=== PATIENT | female | born 1950 | race Caucasian/White ===

== ENCOUNTER 2022-03-23 12:17 | Emergency (ER) | payer MEDICARE, SELFPAY ==
--- NOTE | 2022-03-23 12:29 | ED.ABDPAIN ---
HPI - Abdominal Pain General Chief Complaint: Abdominal Pain Stated Complaint: Stomach pain Time Seen by Provider: 03/23/22 12:29 Source: patient and RN notes reviewed Mode of arrival: ambulatory Limitations: no limitations History of Present Illness HPI narrative: 72 y/o female presented for c/o lower abdominal pain, this is the third day. Endorses associated decreased appetite and diarrhea today. States pain is constant, waxes/wanes in intensity depending on taking ibuprofen. Described as sharp, rates 9/10. Pain does not radiate. Denies associated hematochezia, melena, nausea, vomiting, constipation,hematuria, dysuria, frequency, fever or chills. Denies hx abdominal surgeries. Requesting different pain medication. Related Data Home Medications Medication Instructions Recorded Confirmed metoprolol succinate 50 mg PO DAILY 03/23/22 03/23/22 Allergies Allergy/AdvReac Type Severity Reaction Status Date / Time Sulfa (Sulfonamide Allergy Unknown Unknown Unverified 03/23/22 12:34 Antibiotics) Review of Systems Review of Systems: CONSTITUTIONAL: Denies body aches, fever, chills EYES: Denies visual changes ENT: Denies rhinorrhea, congestion CARDIOVASCULAR: Denies chest pain, palpitations, or edema. RESPIRATORY: Denies cough or dyspnea. GASTROINTESTINAL: Endorses abdominal pain, diarrhea. Denies , nausea, vomiting, hematochezia, melena, hematemesis GENITOURINARY: Denies dysuria, hematuria, or CVA tenderness. SKIN: Denies rash, itching, or wounds. MUSCULOSKELETAL: Denies back pain, joint pain, or myalgia. NEUROLOGIC: Denies headache, numbness, tingling, or weakness. PSYCH: Denies mood change All systems reviewed & are unremarkable except as noted in HPI and below PMFSH Comments At time of signature, I have reviewed and agree with nursing past medical, surgical, social and family history unless otherwise noted. Please see nursing chart for further information. There is no relevant family history pertinent to the presenting complaint Exam Narrative: GENERAL: Well-appearing HEAD: Normocephalic, atraumatic. EYES: EOMI. Conjunctivae normal. ENT: Mucous membranes pink and moist. NECK: Normal AROM. Supple. No lymphadenopathy. CHEST: No respiratory distress. Clear to auscultation. HEART: Regular rate and rhythm. No murmur appreciated. Normal peripheral pulses. ABDOMEN: Tender across low abdomen, No guarding, rebound tenderness, asymmetry; abd soft, nondistended, normal active bowel sounds. Ventral hernia with exertion. Moves slowly due to pain increasing with movement. MUSCULOSKELETAL: No bony tenderness. EXTREMITIES: Normal range of motion. No edema. SKIN: Warm, dry, no rash. Capillary refill normal. Normal skin turgor. NEURO: No focal deficits. Alert and oriented x3. Gait steady. PSYCH: Normal affect. Course Course Emergency Course: Patient is aware of diagnosis, understands and agrees to treatment plan. Anticipatory guidance given. Patient agrees to follow-up as directed and is aware of reasons to seek care at the emergency department. Portions of this record may have been created with voice recognition software Level of Care: Express Care Visit Vital Signs Vital signs: Vital Signs Temperature 98.8 F 03/23/22 12:32 Pulse Rate 70 03/23/22 12:32 Respiratory Rate 16 03/23/22 12:32 Blood Pressure 122/47 L 03/23/22 12:32 Pulse Oximetry 97 03/23/22 12:32 Temperature 98.8 F 03/23/22 12:35 Pulse Rate 70 03/23/22 12:35 Respiratory Rate 16 03/23/22 12:35 Blood Pressure 122/47 L 03/23/22 12:35 Pulse Oximetry 97 03/23/22 12:35 Transfer Transfered to: [facility] Transportation: Other (Private vehicle) Transfer rationale: Pt is agreeable to transfer to ER for further evaluation of abdominal pain. Requests transfer to [facility] via private vehicle. Risks of transportation reviewed with pt including injury, worsening of condition and . v/u. Requested laborer driver self. Repor
[2022-03-23 12:32] VITALS: BP 122/47; PULSE 70; RESP 16; TEMP 37.1; O2SAT 97
[2022-03-23 12:35] VITALS: BP 122/47; PULSE 70; RESP 16; TEMP 37.1; O2SAT 97
== END 2022-03-23 13:26 | disposition short-term general hospital (02) ==
PROVIDERS: Emergency Provider Nurse Practitioner Family; PCP Family Medicine
DX: R10.30 Lower abdominal pain, unspecified (principal); I10 Essential (primary) hypertension
CPT/HCPCS: 81003; 99212; G0463

== ENCOUNTER 2022-03-23 13:51 | Day surgery (SDC) | payer MEDICARE, SELFPAY ==
[2022-03-23] VITALS (18 sets, daily range): BP systolic 89–148; BP diastolic 40–52; PULSE 69–88; RESP 11–26; TEMP 36.2–37.9; O2SAT 96–100
--- NOTE | ~2022-03-23 | CT_ITS ---
EXAMINATION: CT abdomen pelvis w con DATE: 03/23/2022 15:53 INDICATION: Right lower quadrant abdominal pain. Diarrhea. TECHNIQUE: Computed tomography (CT) of the abdomen and pelvis was performed with 100 mL Omnipaque 350 intravenous contrast. Automated exposure control and iterative reconstruction technique were employe d. The dose-length product was 703.15 mGy-cm. COMPARISON: None. FINDINGS: The visualized portions of the lung bases demonstrates smooth septal thickening, consistent with mild pulmonary edema. There is mild atelectasis bilaterally. No pleural effusion. There is biat rial enlargement of the heart. There are coronary artery calcifications. No pericardial effusion. The liver demonstrates a nodular surface contour, consistent with cirrhosis. There are cysts in the live r measuring up to 7 mm. Paraesophageal varices are noted. The gallbladder, spleen, pancreas, and adre nal glands are normal. There are cysts in the kidneys measuring up to 9 mm on the right. There is an old subcapsular hematoma of left kidney with calcifications. There is a portocaval shunt from the spl enic vein to the inferior vena cava. There are no dilated loops of bowel. The appendix is dilated to 10 mm with surrounding fat stranding, consistent with appendicitis. There are fibroids in the uterus measuring up to 12 mm. There are no pathologically enlarged lymph nodes. There is no free intraperito jared fluid. There is mild lumbar spondylosis. IMPRESSION: 1. Acute appendicitis. I called this result to Dr. Dean. 2. Cirrhosis of the liver with portal venous hypertension. 3. Mild pulmonary edema. Reviewed, dictated and finalized at location B.
--- NOTE | 2022-03-23 14:41 | PC.NURSE ---
Lenka Dean at bedside to assess pt.
[2022-03-23 15:08] LABS: Hematocrit 41.3 % (37.0-47.0); Hemoglobin 14.3 g/dL (12.0-15.0); Mean Corpuscular HGB Conc 34.6 g/dl (32-36); Mean Corpuscular Hemoglobin 33.3 pg (26-34); Mean Corpuscular Volume 96.3 fl (80-100); Mean Platelet Volume 10.4 fl (7.4-10.4); Platelet Count Result 93 k/mm3 (150-375); Red Blood Count 4.29 M/mm3 (4.2-5.4); Red Cell Distribution Width 13.7 % (11.5-14.5); White Blood Count 7.7 K/mm3 (4.5-10.0)
[2022-03-23 15:16] LABS: Alanine Aminotransferase 30 U/L (4-35); Albumin Level 3.2 g/dL (3.5-5.1); Alkaline Phosphatase 138 U/L (38-126); Anion Gap 5 mmol/L (8-16); Aspartate Amino Transferase 70 U/L (14-36); Bilirubin,Total 2.6 mg/dL (0.2-1.3); Blood Urea Nitrogen 19 mg/dL (7-17); Calcium 8.3 mg/dL (8.4-10.2); Carbon Dioxide 23 mmol/L (22-30); Chloride 105 mmol/L (98-107); Estimated CRCL calculation 51 ml/min; Estimated Glomerular Filt Rate > 60; Glucose 151 mg/dL (65-110); Potassium 3.9 mmol/L (3.4-5.0); Sodium 133 mmol/L (137-145)
--- NOTE | 2022-03-23 15:44 | PC.NURSE ---
Patient off unit to Radiology for CT.
[2022-03-23 15:45] LABS: Band Neutrophils Percent 7 % (0-6); Eosinophils Absolute Manual 0.07 K/mm3 (0.02-0.5); Eosinophils Percent Manual 1 % (0-4); Lymphocytes Absolute Manual 0.15 K/mm3 (1.1-4.5); Metamyelocytes Percent 2 %; Monocytes Absolute Manual 0.46 K/mm3 (0.1-0.90); Monocytes Percent Manual 6 % (3-9); Neutrophils Absolute Manual 6.85 K/mm3 (1.7-7.2); Neutrophils Percent Manual 82 % (46-73); Total Cells Counted 100
[2022-03-23 15:48] LABS: Add Urine Microscopic? NO; Appearance Urine Clear (Clear); Bilirubin Urine Negative (Negative); Blood Urine Negative (Negative); Color Urine Yellow (Yellow); Glucose Urine UA Negative (Negative); Ketones Urine Negative (Negative); Leukocyte Esterase Ur Negative LEU/UL (Negative); Nitrate Urine Negative (Negative); Protein Urine Negative (Negative); Specific Grav Ur 1.005 (1.001-1.035); Urobilinogen Urine Negative mg/dL (<2.0)
--- NOTE | 2022-03-23 16:16 | ED.ABDPAIN ---
HPI - Abdominal Pain General Chief Complaint: Abdominal Pain Stated Complaint: abd pain Time Seen by Provider: 03/23/22 14:06 History of Present Illness HPI narrative: Patient is a 72-year-old female who presents ER with lower abdominal pain. Progressing over the last 2 days. Worse with movement. Has had a few liquid stools but no overt diarrhea. No nausea or vomiting. Reports subjective fever. Pain seems to be worse in the right lower quadrant. No radiation. Related Data Home Medications Medication Instructions Recorded Confirmed metoprolol succinate 50 mg PO DAILY 03/23/22 03/23/22 Allergies Allergy/AdvReac Type Severity Reaction Status Date / Time Sulfa (Sulfonamide Allergy Unknown Unknown Verified 03/23/22 16:25 Antibiotics) Review of Systems Review of Systems: All systems reviewed & are unremarkable except as noted in HPI and below Constitutional: Constitutional: Denies chills, Reports fever(s) and Denies weakness ENT: Denies nasal congestion and Denies sore throat Cardiovascular: Cardiovascular: Denies chest pain, Denies rapid heart rate and Denies radiating jaw, neck or arm pain Respiratory: Respiratory: Denies cough, Denies dyspnea and Denies wheezing Gastrointestinal: Gastrointestinal: Reports abdominal pain, Reports diarrhea, Denies nausea and Denies vomiting Genitourinary: Genitourinary: Denies nocturia, Denies dysuria and Denies flank pain PMFSH Past Medical History Medical History (Updated 03/23/22 @ 17:10 by Ronny Dean MD) H/O: HTN (hypertension) Overweight (BMI 25.0-29.9) Surgical History Surgical History (Updated 03/23/22 @ 17:09 by Ronny Dean MD) No significant past surgical history Social History Social History (Updated 03/23/22 @ 17:09 by Ronny Dean MD) Smoking status: Never smoker Exam Narrative: GENERAL: Well-appearing, well-nourished, and in no acute distress. HEAD: Normocephalic, atraumatic. CHEST: Clear to auscultation. No respiratory distress. HEART: Regular rate and rhythm. Normal peripheral pulses. ABDOMEN: Soft, tender palpation right lower quadrant with guarding, nondistended, normal active bowel sounds. EXTREMITIES: Normal range of motion. No edema. SKIN: Warm, dry, no rash. NEURO: Alert and oriented x3. PSYCH: Normal mood and affect. Course Course Emergency Course: Patient informed of results. Discussed case with Dr. Langston. Patient received IV Zosyn. Work your requests add on coagulation studies due to cirrhosis seen on imaging. Vital Signs Vital signs: Vital Signs Temperature 100.2 F H 03/23/22 13:53 Pulse Rate 76 03/23/22 13:53 Respiratory Rate 14 03/23/22 13:53 Blood Pressure 148/52 H 03/23/22 13:53 Pulse Oximetry 98 03/23/22 13:53 Temperature 100.2 F H 03/23/22 13:53 Pulse Rate 76 03/23/22 13:53 Respiratory Rate 14 03/23/22 13:53 Blood Pressure 125/48 L 03/23/22 14:16 Pulse Oximetry 97 03/23/22 16:15 MDM - Abdominal Pain Lab Data Result diagrams: 03/23/22 14:56 03/23/22 14:56 Labs: Lab Results 03/23/22 03/23/22 03/23/22 Range/Units 14:56 14:56 15:13 WBC 7.7 (4.5-10.0) K/mm3 RBC 4.29 (4.2-5.4) M/mm3 Hgb 14.3 (12.0-15.0) g/dL Hct 41.3 (37.0-47.0) % MCV 96.3 (80-100) fl MCH 33.3 (26-34) pg MCHC 34.6 (32-36) g/dl RDW 13.7 (11.5-14.5) % Plt Count 93 L (150-375) k/mm3 MPV 10.4 (7.4-10.4) fl Immature Gran % (Auto) Not Reportable Neut % (Auto) Not Reportable Lymph % (Auto) Not Reportable Brooks % (Auto) Not Reportable Eos % (Auto) Not Reportable Baso % (Auto) Not Reportable Lymph # (Auto) Not Reportable Brooks # (Auto) Not Reportable Eos # (Auto) Not Reportable Baso # (Auto) Not Reportable Abs Immat Gran (auto) Not Reportable Absolute Neuts (auto) Not Reportable Absolute Nucleated RBC Not Reportable Total Counted 100
--- NOTE | 2022-03-23 16:19 | PC.NURSE ---
EDP at bedside to update patient on results and plan of care.
--- NOTE | 2022-03-23 16:32 | WPDANESEPP ---
Anes - Eval Pre Procedure Procedure: Laparoscopic appendectomy Date/Time: 03/23/22 16:32 Surgeon: alondra Preop Diagnosis: Acute appendicitis Pre Op Diagnosis: abd pain Patient Data Age: 72 Gender: F Height: 1.63 m Weight: 79.5 kg Last Vital Signs Temp 100.2 F H 03/23/22 13:53 Pulse 76 03/23/22 13:53 Resp 14 03/23/22 13:53 BP 125/48 L 03/23/22 14:16 Pulse Ox 97 03/23/22 16:15 Allergies Allergy/AdvReac Type Severity Reaction Status Date / Time Sulfa (Sulfonamide Allergy Unknown Unknown Verified 03/23/22 16:25 Antibiotics) Home Medications Medication Instructions Recorded Confirmed Type metoprolol succinate 50 mg PO DAILY 03/23/22 03/23/22 History Laboratory Tests 03/23/22 03/23/22 03/23/22 14:56 14:56 15:13 WBC 7.7 K/mm3 K/mm3 (4.5-10.0) RBC 4.29 M/mm3 M/mm3 (4.2-5.4) Hgb 14.3 g/dL g/dL (12.0-15.0) Hct 41.3 % % (37.0-47.0) MCV 96.3 fl fl (80-100) MCH 33.3 pg pg (26-34) MCHC 34.6 g/dl g/dl (32-36) RDW 13.7 % % (11.5-14.5) Plt Count 93 k/mm3 L k/mm3 (150-375) MPV 10.4 fl fl (7.4-10.4) Immature Gran % (Auto) Not Reportable Neut % (Auto) Not Reportable Lymph % (Auto) Not Reportable Arthur % (Auto) Not Reportable Eos % (Auto) Not Reportable Baso % (Auto) Not Reportable Lymph # (Auto) Not Reportable Arthur # (Auto) Not Reportable Eos # (Auto) Not Reportable Baso # (Auto) Not Reportable Abs Immat Gran (auto) Not Reportable Absolute Neuts (auto) Not Reportable Absolute Nucleated RBC Not Reportable Total Counted 100 Neutrophils % (Manual) 82 % H % (46-73) Band Neutrophils % 7 % H % (0-6) Lymphocytes % (Manual) 2.0 % L % (18-44) Monocytes % (Manual) 6 % % (3-9) Eosinophils % (Manual) 1 % % (0-4) Metamyelocytes % 2 % % Nucleated RBC % Not Reportable Abs Neuts (Manual) 6.85 K/mm3 K/mm3 (1.7-7.2) Abs Lymphs (Manual) 0.15 K/mm3 L K/mm3 (1.1-4.5) Abs Monocytes (Manual) 0.46 K/mm3 K/mm3 (0.1-0.90) Absolute Eos (Manual) 0.07 K/mm3 K/mm3 (0.02-0.5) Platelet Estimate Slightly decreased (Adequate) % Immature Plt Fraction 3.0 % % (0.9-11.2) Sodium 133 mmol/L L mmol/L (137-145) Potassium 3.9 mmol/L mmol/L (3.4-5.0) Chloride 105 mmol/L mmol/L (98-107) Carbon Dioxide 23 mmol/L mmol/L (22-30) Anion Gap 5 mmol/L L mmol/L (8-16) BUN 19 mg/dL H mg/dL (7-17) Creatinine 0.90 mg/dL mg/dL (0.7-1.0) Estim Creat Clear Calc 51 ml/min ml/min Estimated GFR > 60 (59 - ) Glucose 151 mg/dL H mg/dL (65-110) Calcium 8.3 mg/dL L mg/dL (8.4-10.2) Total Bilirubin 2.6 mg/dL H mg/dL (0.2-1.3) AST 70 U/L H U/L (14-36) ALT 30 U/L U/L (4-35) Alkaline Phosphatase 138 U/L H U/L (38-126) Total Protein 6.0 g/dL L g/dL (6.3-8.2) Albumin 3.2 g/dL L g/dL (3.5-5.1) Urine Color Yellow (Yellow) Urine Appearance Clear (Clear) Urine pH 6.0 (5.0-9.0) Ur Specific [place] 1.005 (1.001-1.035) Urine Protein Negative mg/dL mg/dL (Negative) Urine Glucose (UA) Negative mg/dL mg/dL (Negative) Urine Ketones Negative mg/dL mg/dL (Negative) Ur Blood (Man) Negative (Negative) Urine Nitrate Negative (Negative) Urine Bilirubin Negative (Negative) Urine Urobilinogen Negative mg/dL mg/dL (<2.0) Leukocyte Esterase Rfl Negative ANKUSH/UL ANKUSH/UL (Negative) Patient hx anesthesia problems
--- NOTE | 2022-03-23 17:28 | PM.IMHP ---
H&P: HPI History of Present Illness Date/Time: 03/23/22 17:28 Chief Complaint: Lower abdominal pain Narrative: This is a 72-year-old woman who presented to the emergency department with lower abdominal pain that started 2 days ago. She states that this was mild generalized pain at 1st but now is more localized to the right lower quadrant. She denies any nausea or vomiting. She did have some slightly looser stools this morning. She denies fevers or chills, but her temperature is slightly elevated in the emergency department. She states that she had some mild pains similar to this about a year ago but they were not as severe and resolved on their own. She denies any history of heavy alcohol use and denies a prior history of viral hepatitis. She was on statins for cholesterol several years ago and her liver enzymes were monitored at that time but she states that they were never elevated back then. Review of Systems Review of Systems: All systems reviewed & are unremarkable except as noted in HPI and below Constitutional: Constitutional: Denies chills, Denies fever(s), Denies headache(s) and Denies weight loss Eyes: Eyes: Denies change in vision ENT: Denies dizziness, Denies headache(s), Denies neck mass and Denies throat swelling Cardiovascular: Cardiovascular: Denies chest pain, Denies lightheadedness and Denies dyspnea Respiratory: Respiratory: Denies cough, Denies dyspnea and Denies wheezing Gastrointestinal: Gastrointestinal: Reports as per HPI and Reports abdominal pain Genitourinary: Genitourinary: Denies hematuria and Denies dysuria Musculoskeletal: Musculoskeletal: Reports as per HPI Integumentary/Breasts: Skin/Breast: Reports as per HPI Neurologic: Denies dizziness and Denies headache(s) Allergic/Immunologic: Allergic/Immunologic: Denies throat swelling and Denies wheezing [facility] Past Medical History Medical History (Updated 03/23/22 @ 17:36 by Aguila Delatorre DO) H/O: HTN (hypertension) Overweight (BMI 25.0-29.9) Surgical History Surgical History (Updated 03/23/22 @ 17:31 by Aguila Delatorre DO) History of lumpectomy of left breast Social History Social History (Updated 03/23/22 @ 17:32 by Aguila Delatorre DO) Smoking status: Never smoker Alcohol use details: Maybe 1 glass of wine per month Meds Home Medications and Allergies Home Medications Medication Instructions Recorded Confirmed Type metoprolol succinate 50 mg PO DAILY 03/23/22 03/23/22 History Allergies Allergy/AdvReac Type Severity Reaction Status Date / Time Sulfa (Sulfonamide Allergy Unknown Unknown Verified 03/23/22 16:25 Antibiotics) Vital Signs Vital Signs - 24 hr 03/23/22 13:53 03/23/22 14:10 03/23/22 14:11 Temperature 37.9 C H Pulse Rate 76 Respiratory Rate 14 Blood Pressure 148/52 H 133/48 L Pulse Oximetry 98 97 97 03/23/22 14:15 03/23/22 14:16 03/23/22 15:16 Temperature Pulse Rate Respiratory Rate Blood Pressure 125/48 L Pulse Oximetry 96 96 97 03/23/22 15:30 03/23/22 15:58 03/23/22 16:02 Temperature Pulse Rate Respiratory Rate Blood Pressure Pulse Oximetry 97 96 97 03/23/22 16:15 03/23/22 16:30 03/23/22 16:45 Temperature Pulse Rate Respiratory Rate Blood Pressure Pulse Oximetry 97 96 97 Exam Const: General: no acute distress and alert Orientation/consciousness: patient oriented x3 HENMT: Head: normocephalic and atraumatic Ears: hearing grossly normal bilaterally General nose exam: Normal nares present Mouth: Yes Normal oral and palatal mucosa present Eyes: Periorbital: periorbital findings normal Sclera: sclerae normal EOM: EOMs intact bilaterally Neck: Neck: normal visual inspection, no lymphadenopathy and trachea midline Chest: Chest palpation & inspection: normal inspection of the chest Resp: Effort & Inspection: normal respiratory effort Auscultation: clear to auscultation bilaterally Card
--- NOTE | 2022-03-23 17:40 | WPDHPUPDATE1 ---
History and Physical Update Update Date/Time: 03/23/22 17:40 History and Physical has been reviewed, including an updated exam of the patient. There are NO changes in the patient's condition. Risks, benefits, and alternatives have been discussed and questions answered. Patient agrees to proceed with procedure.
[2022-03-23 17:49] LABS: INR 1.3; Partial Thromboplastin Time 35.9 SECONDS (22.3-36.8); Prothrombin Time 15.7 Seconds (11.1-14.7)
[2022-03-23] MEDS: LACTATED RINGERS 1,000 ML 30 ML IV CONT ×2 (18:00→18:49)
[2022-03-23] MEDS: BUPIVACAINE/EPINEPHRINE 0.25% 50 ML VIAL 30 ML INFILTRATE (18:23)
--- NOTE | 2022-03-23 18:36 | W.PM.PROC2 ---
Procedure Note - Detailed Date of Procedure 03/23/22 Pre-op Diagnosis Acute appendicitis Post-op Diagnosis Same Procedure Performed Laparoscopic appendectomy Surgeon Aguila Delatorre, DO Anesthesia General and Local (0.5% bupivicaine with epinephrine) Indications This is a 72-year-old woman who presented to the emergency department this afternoon with lower abdominal pain for the past 2 days. She had never experienced any symptoms this severe in the past. She denied any fevers or chills. Her white blood count was normal, but CT showed evidence of acute appendicitis. She was also noted to have findings consistent with cirrhosis and portal hypertension on the CT. She had no prior known history of liver disease and no history of heavy alcohol use. Platelets were slightly low at 98,000, PT and INR were within normal limits. Discussions were made with the patient about treatment options and decision was made to proceed with urgent laparoscopic appendectomy, possible open. Findings Laparoscopic appendectomy was performed. The tip of the gallbladder appeared slightly gangrenous and this appeared to be densely adherent to the corner the uterus near the fallopian tube. The remainder of the appendix appeared slightly dilated. The base of the appendix appeared healthy and viable. The appendix was removed and sent to the lab for pathology. The area was irrigated with sterile saline and no evidence of abscess or purulence fluid was noted. Description of Procedure Procedure as well as risks, benefits, and alternatives were explained to the patient. The patient agreed to proceed. Written consent was obtained and placed in chart prior to procedure. The patient was brought back to surgical suite. She was placed supine on operating table. Time-out was done to confirm the patient and procedure. The patient was then intubated by the Anesthesia Department. Her abdomen was prepped and draped in sterile fashion using chlorhexidine prep. A 5 mm incision was made just to the left of the patient's umbilicus and a 5 mm Optiview trocar was advanced through the abdominal layers under direct visualization. Once inside the peritoneal cavity, carbon dioxide insufflation was used to create a pneumoperitoneum. The camera was inserted and the abdomen was inspected. No immediate abnormalities were identified. The patient was then placed in slight Trendelenburg position and rotated to the left. A 5 mm incision was made in the suprapubic region in midline and a 5 mm trocar was inserted under direct visualization. A 12 mm incision was made in the left lower quadrant and a 12 mm trocar was inserted under direct visualization. The right lower quadrant was carefully inspected. The cecum was identified and then this was traced back to the appendix. The appendix was identified and grasped at the mesoappendix and lifted anteriorly. Careful blunt dissection was carried out at the base of the appendix through the mesoappendix using a [place] grasper. An Endo-APRIL 45 mm blue load stapler was then advanced across the base of the appendix and clamped and fired. A white reload was then clamped across the mesoappendix and fired. This freed up our appendix completely. It was then placed in an EndoCatch bag and removed through the left lower quadrant port. The staple lines were then inspected. Hemostasis appeared adequate and the staple lines appeared secure. The area was then irrigated with sterile saline. The pelvis was then carefully inspected and irrigated with sterile saline as well and the remainder of the abdomen was carefully inspected. The patient was then flattened out in bed. One final inspection was made around the abdominal cavity and no other abnormalities were seen. The left lower quadrant port was removed and a Gurdeep-Alf cone was used to approximate the fascia with an 0 Vicryl simple interrupted suture. The remaining ports were then removed under direct visualization.
== END 2022-03-23 20:15 | disposition home or self-care (01) ==
LOC: ANHED 14:21 → ANHSURGERY 16:26
PROVIDERS: Emergency Provider Emergency Medicine; PCP Family Medicine; Visit Provider Surgery
PROC: 0DTJ4ZZ Resection of Appendix, Percutaneous Endoscopic Approach (ICD-10-PCS; CPT 44970; principal; 2022-03-23 17:30)
DX: K35.30 Acute appendicitis with localized peritonitis, without perforation or gangrene (principal); K74.60 Unspecified cirrhosis of liver; D69.6 Thrombocytopenia, unspecified; J81.1 Chronic pulmonary edema; I10 Essential (primary) hypertension
CPT/HCPCS: 44970; 36415; 74177; 80053; 81003; 85025; 85055; 85610; 85730; 86850; 86900; 86901; 88304; 96365; 99212; 99285; G0463; J0330; J1100; J2405; J2543; J2704; J3010; J7030; J7120; Q9967